=== PATIENT | male | born 1995 | race Caucasian/White ===

== ENCOUNTER 2017-01-16 11:21 | Emergency (ER) | payer MEDICAID | END 2017-01-16 13:01 | disposition home or self-care (01) | LOC: ED 11:21 | DX: S39.011A Strain of muscle, fascia and tendon of abdomen, initial encounter (principal); J45.909 Unspecified asthma, uncomplicated; K21.9 Gastro-esophageal reflux disease without esophagitis; F17.210 Nicotine dependence, cigarettes, uncomplicated; X58.XXXA Exposure to other specified factors, initial encounter; Z79.899 Other long term (current) drug therapy; Z88.0 Allergy status to penicillin ==